=== PATIENT | male | born 1985 | race Caucasian/White ===

== ENCOUNTER 2019-12-20 08:27 | Day surgery (SDC) | payer OTHER ==
[~2019-12-20] VITALS: Ht 160 cm; Wt 82.3 kg
[~2019-12-20 08:27] MED LIST: CETI-450 PO; IMIP10 PO; MIRT-89 PO; RIFAX550 PO; SODIUM CHLORIDE 0.9% 1,000 ML ONE
[2019-12-20] MEDS ORDERED: LIDOCAINE/PF 2% 5 ML VIAL IM ONE (08:28)
[2019-12-20] MEDS ORDERED: PROPOFOL 1% 20 ML VIAL IVP ONE (08:28)
[2019-12-20] MEDS ORDERED: SODIUM CHLORIDE 0.9% 1,000 ML IV ONE (08:30)
[2019-12-20] MEDS ORDERED: OXYGEN THERAPY IH SCH (11:30)
== END 2019-12-20 12:30 | disposition home or self-care (01) ==
LOC: SURGERY 08:27
PROVIDERS: ATTEND Specialist
DX: R13.10 Dysphagia, unspecified (principal); F32.9 Major depressive disorder, single episode, unspecified; F41.9 Anxiety disorder, unspecified; K21.9 Gastro-esophageal reflux disease without esophagitis; Z88.0 Allergy status to penicillin; Z11.59 Encounter for screening for other viral diseases
CPT/HCPCS: 43249; 87635; J2704; J3490; J7030